=== PATIENT | female | born 1975 | race Caucasian/White ===

== ENCOUNTER 2020-01-26 06:44 | Day surgery (SDC) | payer BC ==
[~2020-01-26 06:44] MED LIST: BUSPIRONE10 M1 OR; BUSPIRONE10 MG PO; BUSPIRONE5 MG PO; CIPROFLOXACN500 MG PO; CYANOCOBAL1000 MCG/M IM; DICYCLOMINE10 MG PO; DOXYCYCL HYC100 MG PO; EFFEXOR37.5 MG PO; ELAVIL25 MG PO; FENOFIBRATE160 MG PO; FLAGYL ER750 MG PO; FLUZONE SPLT1 M1 IM; HM IRON65 MG PO; HYDROXYZINE HCL25 M1 PO; IRON325 MG OR; KEFLEX250 MG PO; LIPITOR10 M1 PO; LORAZEPAM0.5 MG PO; METROGEL VAG0.75 % VA; OMEPRAZOLE20 MG PO; OMNICEF300 MG PO; PAROXETINE20 MG PO; PERCOCET 5/325M1 TAB PO; PRENATA3 PO; TERBINAFINE250 M1 OR; TIZANIDINE2 MG PO; TRAMADOL HCL50 MG PO; TUBERSOL5 MG/0.1 M ID; VENLAFAXINE HCL75 M1 PO; VICODIN1 TA1 PO; VITAMIN D32000 UNIT PO; WELLBUTRIN100 M1 PO; ZOFRAN ODT4 MG PO
[2020-01-26 07:49] LABS: BARBITURATES NEGATIVE (NEGATIVE); COCAINE NEGATIVE (NEGATIVE); METHADONE NEGATIVE (NEGATIVE); OXCYCODONE NEGATIVE (NEGATIVE); TETRAHYDROCANNABIONOL NEGATIVE (NEGATIVE); TRICYLIC ANTIDEPRESSANTS NEGATIVE (NEGATIVE)
[2020-01-26 09:13] VITALS: BP 140/64
== END 2020-01-26 09:29 | disposition home or self-care (01) | DRG 395 ==
LOC: ENDO 06:44 → ORM 08:10 → ENDO 08:45
PROVIDERS: Nurse Anesthetist, Certified Registered; ATTEND Surgery
PROC: 0DBN8ZX Excision of Sigmoid Colon, Via Natural or Artificial Opening Endoscopic, Diagnostic (ICD-10-PCS; principal; 2020-01-26)
DX: K64.8 Other hemorrhoids (principal); K63.5 Polyp of colon; Z11.59 Encounter for screening for other viral diseases

== ENCOUNTER 2023-02-04 07:24 | Day surgery (SDC) | payer BC ==
[~2023-02-04] VITALS: Ht 170.2 cm; Wt 120.2 kg
[2023-02-04 10:42] VITALS: BP 107/71
== END 2023-02-04 11:00 | disposition home or self-care (01) | DRG 951 ==
LOC: ORM 07:24
PROVIDERS: ATTEND Internal Medicine Gastroenterology
PROC: 0DBK8ZX Excision of Ascending Colon, Via Natural or Artificial Opening Endoscopic, Diagnostic (ICD-10-PCS; principal; 2023-02-04)
PROC: 0DBN8ZX Excision of Sigmoid Colon, Via Natural or Artificial Opening Endoscopic, Diagnostic (ICD-10-PCS; 2023-02-04)
DX: Z12.11 Encounter for screening for malignant neoplasm of colon (principal); D12.2 Benign neoplasm of ascending colon; K63.5 Polyp of colon; K64.8 Other hemorrhoids; K59.09 Other constipation; Z86.010 Personal history of colon polyps

== ENCOUNTER 2023-06-03 07:05 | Day surgery (SDC) | payer BC ==
[~2023-06-03] VITALS: Ht 170.2 cm; Wt 120.2 kg
[2023-06-03 10:21] VITALS: BP 137/70
== END 2023-06-03 10:40 | disposition home or self-care (01) | DRG 392 ==
LOC: ORM 07:05
PROVIDERS: ATTEND Internal Medicine Gastroenterology
PROC: 0DB98ZX Excision of Duodenum, Via Natural or Artificial Opening Endoscopic, Diagnostic (ICD-10-PCS; principal; 2023-06-03)
PROC: 0DB78ZX Excision of Stomach, Pylorus, Via Natural or Artificial Opening Endoscopic, Diagnostic (ICD-10-PCS; 2023-06-03)
PROC: 0DB48ZX Excision of Esophagogastric Junction, Via Natural or Artificial Opening Endoscopic, Diagnostic (ICD-10-PCS; 2023-06-03)
DX: K29.70 Gastritis, unspecified, without bleeding (principal); K22.2 Esophageal obstruction; K44.9 Diaphragmatic hernia without obstruction or gangrene; F41.9 Anxiety disorder, unspecified; Z86.010 Personal history of colon polyps